=== PATIENT | female | born 1990 | race Caucasian/White ===

== ENCOUNTER 2019-01-14 18:19 | Emergency (ER) | payer OTHER | END 2019-01-14 20:13 | disposition home or self-care (01) | LOC: E/R 18:19 | DX: L03.90 Cellulitis, unspecified (principal); F19.10 Other psychoactive substance abuse, uncomplicated; F17.210 Nicotine dependence, cigarettes, uncomplicated; F41.9 Anxiety disorder, unspecified | CPT/HCPCS: 81025; 99282 ==

== ENCOUNTER 2019-01-26 16:27 | Emergency (ER) | payer OTHER | END 2019-01-26 17:37 | disposition home or self-care (01) | LOC: FTE 17:37 | DX: S80.861A Insect bite (nonvenomous), right lower leg, initial encounter (principal); S80.862A Insect bite (nonvenomous), left lower leg, initial encounter; S30.860A Insect bite (nonvenomous) of lower back and pelvis, initial encounter; W57.XXXA Bitten or stung by nonvenomous insect and other nonvenomous arthropods, initial encounter; Y92.9 Unspecified place or not applicable; Z87.891 Personal history of nicotine dependence | CPT/HCPCS: 99283; Z7502 ==